=== PATIENT | female | born 1955 | race Two or more races ===

== ENCOUNTER 2019-12-06 13:34 | Emergency (ER) | payer MEDICAID, OTHER ==
[~2019-12-06] VITALS: Ht 160 cm; Wt 75.0 kg
[2019-12-06] MEDS ORDERED: methylPREDNISolone sod succ 125mg/2ml vial IV ONE (14:15)
[2019-12-06] MEDS ORDERED: diphenhydrAMINE 50 mg/ml inj IV ONE (14:15)
[2019-12-06] MEDS ORDERED: famotidine/PF 10 mg/ml inj IV ONE (14:15)
--- NOTE | 2019-12-06 14:25 | NUR ---
Patient states that she already took 50 mg PO benedryl prior to coming to ED from PCP and is A&O 4 with no signs of lethargy or feeling tired per patient. Spoke with Dr. Sutton regarding order for 25 mg IV benedryl now, Dr. Sutton already knew about the previous dose and is ok with administered medication. Will administer per MD orders.
[2019-12-06] MEDS ORDERED: PRED20TA PO (15:28)
[2019-12-06 15:35] VITALS: BP 144/57
== END 2019-12-06 15:39 | disposition home or self-care (01) ==
LOC: ER 13:36
DX: D18.01 Hemangioma of skin and subcutaneous tissue (principal); I25.10 Atherosclerotic heart disease of native coronary artery without angina pectoris; I10 Essential (primary) hypertension; I25.2 Old myocardial infarction; Z86.73 Personal history of transient ischemic attack (TIA), and cerebral infarction without residual deficits; Z88.5 Allergy status to narcotic agent; Z88.8 Allergy status to other drugs, medicaments and biological substances; Z79.899 Other long term (current) drug therapy
CPT/HCPCS: 96374; 96375; 99284; J1200; J2930; J3490